=== PATIENT | female | born 1960 | race Hispanic/Latino ===

== ENCOUNTER 2017-03-15 11:47 | Emergency (ER) | payer OTHER ==
[~2017-03-15] VITALS: Ht 157.5 cm; Wt 109.1 kg
[~2017-03-15 11:47] MED LIST: CYCL10TA9 PO; HYDR-4003 PO; LOSA1TAB70 PO; NPR500T PO
[2017-03-15 11:57] VITALS: BP 200/110; PULSE 56; RESP 18; O2SAT 97
--- NOTE | 2017-03-15 12:08 | ED.REPORT ---
HPI-Chest Pain 40 and Over Date of Service Mar 15, 2017 ED Provider: The patient is a 57 year old female with history of hypertension who presents to the emergency department complaining of left shoulder pain that began 1.5 months ago. Her pain has worsened since onset. The pain radiates down her left arm. Her pain is exacerbated with movement of her left arm. She has not been able to complete her normal activities due to the pain. She denies any known injury or trauma. She denies chest pain, shortness of breath, dyspnea on exertion, cough, vomiting, fever or chills. Nursing Notes Stated Complaint: LEFT ARM PAIN Chief Complaint: Chest Pain Nursing Notes Reviewed: Yes Allergies: Coded Allergies: No Known Allergies (Verified , 05/12/16) Scheduled Losartan/HCTZ 100-25 mg (Losartan/HCTZ 100-25 mg) 1 Each Tablet 1 TABLET PO DAILY Losartan/HCTZ 100-25 mg (Losartan/HCTZ 100-25 mg) 1 Each Tablet 1 TABLET PO DAILY Scheduled PRN Cyclobenzaprine (Cyclobenzaprine) 10 Mg Tablet 10 MG PO TID PRN PRN Spasm Hydrocodone-Acetaminophen 5-325 mg (Hydrocodone-Acetaminophen 5-325 mg) 1 Each Tablet 1 TABLET PO Q4H PRN PRN For Pain Naproxen (Naproxen) 500 Mg Tab 500 MG PO BID PRN PRN For Pain Naproxen (Naproxen) 500 Mg Tab 500 MG PO BID PRN PRN For Pain Tramadol (Tramadol) 50 Mg Tablet 50 MG PO Q4H PRN PRN For Pain General Time Seen by MD: 12:08 Chief Complaint Other (extremity pain) Hx Obtained From: Patient Arrived By: Walk-in Sudden in Onset?: No Onset Occurred: 3 days ago Symptom Duration: Since onset Location: : Shoulder left Quality: Painful Radiation: : Arm left Severity: Current: Mild Severity: Maximum: Severe Recent Healthcare: No recent doctor visit, No recent hospitalization Similar Sx Previous: No Past Medical History Past Medical History Rosacea Reports: Hypertension Past Surgical History None reported Family History Noncontributory Smoking History Never Smoker Social History Alcohol Use: Denies alcohol use Drug Use: Denies drug use Other Social History: Local resident Ambulatory Status Independent Review of Systems Constitutional: Denies: Chills, Fever Respiratory: Denies: Dyspnea on exertion, Non-productive cough, Shortness of breath Cardiovascular: Denies: Chest pain, Dyspnea on exertion GI: Denies: Vomiting Musculoskeletal: Reports: Back pain (upper left), Extremity pain, Joint pain Complete sys rev & neg: except as marked. Physical Exam Initial Vital Signs Vital Signs (First) Date Time Temp Pulse Resp B/P Pulse Ox O2 Delivery O2 Flow Rate FiO2 03/15/17 11:57 36.1 56 18 200/110 97 Room Air Initial VS: Reviewed Head / Eyes: Atraumatic, Normocephalic, PERRL ENT: Mucous membranes moist, Conjunctiva normal, No scleral icterus Lymphatic: No lymphadenopathy Extremities: Vascular intact, Neuro intact Skin: Warm, Dry, No cyanosis Neurologic: Alert, Oriented, Nonfocal Psychiatric: Mood/affect normal, Behavior normal, Normal thought content General/Constitutional: Awake, Alert, No acute distress, Well appearing Respiratory / Chest: Atraumatic, Breath sounds NL, Breath sounds = bilat, No respiratory distress, No rales, No rhonchi, No wheezing, No stridor, No chest tenderness Cardiovascular: Heart rate NL, Regular rhythm, Heart sounds NL, No gallop, No murmurs, No rubs, Peripheral circulation NL, Pulses = bilaterally, No gross BP differential Abdomen: Atraumatic, Soft, Non-tender, McBurney's non-tender, No guarding, No rebound, BS normoactive, No distention, No hernia, No palpable mass Neck: Supple, No midline vertebral tend Left trapezius muscle tenderness. Interpretation & Diagnostics ECG Interpretation ECG Interpretation: Sinus rhythm with a rate of 50 LVH Time: 12:47 Interpreted by: ED physician Re-Eval/Medical Decision Med Decision/Clinical Course This is not cardiac chest pain, patient has focal tenderness along the left trapezius muscle consistent with trapezius strain. No particularly high risk features, symptoms have been present for month and half. Patient will follow up with primary care. Naproxen and tramadol prescribed. Return precautions given. Source of Hx: Old records Time of Eval: 12:50 Re-Evaluation/Progress Note: Discussed exam findings, diagnosis, and plan for discharge. All questions were addressed. Counseled Regarding: Diagnosis, Need for follow-up, When/why to return to ED Discharge & Departure Primary Impression: Strain of left trapezius muscle Encounter type: initial encounter Qualified Code: S46.812A - Strain of other muscles, fascia and tendons at shoulder and upper arm level, left arm, initial encounter Disposition: Home Discharge Condition All VS Reviewed: Yes Condition: Stable Additional Instructions: You have a strain of your left shoulder. Use tramadol and naproxen for pain. Follow-up with your primary care doctor for further evaluation. Return to ER if you have severe pain in your chest associated with trouble breathing or have other concerns. Usted tuvo georgi torcedura en el hombro nando. Marianna el Naproxen y el Tramadol para calmar el dolor. Pase a saul a nicole medico de irma para que lo revisen despues. Si le aryan jostin muy [place] en el pecho o tiene dificultades para respirar o algun otro problema que le apure, regrese a vernos a la neetu de emergencias Referrals: [facility] Scribe Attestation Portions of this note were transcribed by Sarah Gonzalez. I, Dr. Ramirez personally performed the history, physical exam and medical decision-making; I reviewed and confirmed the accuracy of the information in the transcribed note. Signed by: Brannon Osborne, 03/15/2017 at 1310. August Ramirez DO Mar 15, 2017 12:08 Sarah Gonzalez Mar 15, 2017 12:11
[2017-03-15] MEDS ORDERED: TRAM50TA2 PO (12:52)
[2017-03-15] MEDS ORDERED: NPR500T PO (12:52)
[2017-03-15] MEDS ORDERED: LOSA1TAB70 PO (13:28)
[2017-03-15 13:29] VITALS: BP 155/106; PULSE 57; O2SAT 96
== END 2017-03-15 13:29 | disposition home or self-care (01) ==
LOC: SED 11:47
DX: S46.812A Strain of other muscles, fascia and tendons at shoulder and upper arm level, left arm, initial encounter (principal); X58.XXXA Exposure to other specified factors, initial encounter; Y93.89 Activity, other specified; Y92.9 Unspecified place or not applicable; Y99.9 Unspecified external cause status